=== PATIENT | male | born 1930 | race Caucasian/White ===

== ENCOUNTER 2017-10-25 12:53 | Emergency (ER) | payer MEDICARE ==
[2017-10-25 13:48] LABS: BASOPHIL % 0.2 % (0.0-0.4); Basophil (Absolute #) 0.02 (0-0.4); Eosinophil % 2.6 % (0.00-5.0); Eosinophil (Absolute #) 0.26 (0-0.5); Granulocyte Absolute (ANC) 7.48 (1.4-6.9); Granulocytes % 74.5 % (36.0-66.0); Hematocrit 43.1 % (42-50); Hemoglobin 14.5 gm/dl (12.5-18.0); Lymphocyte (Absolute #) 1.21 (1.0-4.6); Lymphocytes % 12.1 % (24.0-44.0); Mean Cell Volume 94.9 fl (78-100); Mean Corpuscular Hemoglobin 31.9 pg (26-32); Mean Corpuscular Hgb Concent. 33.6 g/dl (32-36); Mean Platelet Volume 9.4 fl (6-9.5); Monocyte (Absolute #) 1.06 (0.0-1.3); Monocytes % 10.6 % (0.0-12.0); Platelet Count 191 K/mm3 (150-450); Red Blood Count 4.54 M/mm3 (4.1-5.6)
--- NOTE | 2017-10-25 13:50 | ERPHSYRPT ---
- History of Present Illness Time Seen by Provider: 10/25/17 13:03 Source: patient, family (), other (Dr Johnston) Patient Subjective Stated Complaint: states has been having mid back pain and constipation for three weeks. Triage Nursing Assessment: to room per w/c, skin warm to touch/pale/dry. tender in mid back. has f/c from home in place. catheter replaced per dr. cano one week ago. hx prostate cancer. catheter not changed in er due to difficulty with placement in the past per dr. johnston. catheter clamped and fresh specimen obtained for lab. abd large/distended, soft, tender to palpation. Physician History: CC: back pain Hx: 86 y/o patient of Dr Johnston with hx of prostate cancer. He has 12 days of low back pain. Some abd pain. Constipation alternates with diarrhea. Wears a willson cath. He was seen in [place] [facility] and took two doses of amoxil which caused diarrhea. No fever or chills. Saw his chiropracter this AM who adjusted him and told him it is not his spine. He is tired. having diff caring for him at home. Timing/Duration: day(s) Allergies/Adverse Reactions: ciprofloxacin [From Cipro] Allergy (Severe, Verified 10/25/17 14:26) levofloxacin [From Levaquin] Allergy (Severe, Verified 10/25/17 14:26) isosorbide Allergy (Unknown, Verified 06/21/17 14:32) levalbuterol HCl [From Xopenex] Allergy (Unknown, Verified 06/21/17 14:32) Sulfa (Sulfonamide Antibiotics) Allergy (Unknown, Verified 06/21/17 14:32) Home Medications: Acetaminophen [Tylenol] 1 tablet PO Q4-6HPRN PRN 12/17/14 [History] Alprazolam [Xanax 0.25 mg] 1 tablet PO BID 12/17/14 [History] Amlodipine Besylate 10 mg [Norvasc 10 MG] 1 tablet PO DAILY 12/17/14 [History] Cyclosporine [Restasis] 1 drop IRRIGATION BID 12/17/14 [History] Gabapentin [Neurontin] 100 mg PO HS 12/17/14 [History] Guaifenesin [Mucinex] 1 tablet PO BID 12/17/14 [History] Hypromellose [Systane Gel] 1 drops IRRIGATION DAILY 12/17/14 [History] Ipratropium/Albuterol Sulfate [Combivent Inhaler] 1 inhaler IH BID 12/17/14 [ History] Latanoprost [Xalatan] 1 drop .ROUTE HS 12/17/14 [History] PANTOPRAZOLE 40 mg Tablet [Protonix 40MG Tablet] 1 tablet PO DAILY [History] Polyethylene Glycol 3350 [Miralax] 30 cap.ec PO DAILY 12/17/14 [History] Saccharomyces Boulardii [Florastor] 1 tablet PO DAILY 12/17/14 [History] Simethicone [Gas-X] 80 mg PO Q4HPRN PRN 12/17/14 [History] Albuterol Sulfate 2.5 mg IH BID 06/21/17 [History] Azelastine HCl [Astepro] 205.5 mcg NS DAILY 06/21/17 [History] Brinzolamide/Brimonidine Tart [Simbrinza 1%-0.2% Eye Drops] 1 ml OP BID [History] Bumetanide 0.5 mg PO DAILY 06/21/17 [History] Esomeprazole Magnesium [Nexium] 40 mg PO DAILY 06/21/17 [History] Ipratropium [place] 0.5 mg [Atrovent 0.5MG NEBULE] 0.5 mg IH DAILY 06/21/17 [History] Methylprednisolone 4 mg PO DAILY 06/21/17 [History] Nebivolol HCl [Bystolic] 2.5 mg PO DAILY 06/21/17 [History] Hx Tetanus, Diphtheria Vaccination/Date Given: Yes Hx Influenza Vaccination/Date Given: Yes Hx Pneumococcal Vaccination/Date Given: Yes Immunizations Up to Date: No - Review of Systems Constitutional: Fatigue, Malaise, Weakness, No Fever, No Chills Eyes: No Symptoms Ears, Nose, & Throat: No Symptoms, No Painful Swallowing Respiratory: No Cough Cardiac: No Chest Pain Abdominal/Gastrointestinal: Abdominal Pain, Diarrhea, Constipation, No Vomiting Genitourinary Symptoms: Other (wears catheter) Musculoskeletal: Back Pain Skin: No Rash Neurological: No Headache All Other Systems: Reviewed and Negative - Past Medical History Pertinent Past Medical History: Yes Neurological History: Migraines ENT History: Cataracts, Glaucoma, Macular Degeneration Cardiac History: Hypertension Respiratory History: COPD Endocrine Medical History: No Pertinent History Musculoskeletal History: Arthritis GI Medical History: GERD History: No Pertinent History Psycho-Social History: Anxiety Male Reproductive Disorders: Prostate Cancer Other Medical History: prostate cancer had the radiation seeds has an indwelling urinary cath,bladder spasms - Past Surgical History Past Surgical History: Yes Neuro Surgical History: No Pertinent History Cardiac: Cardiac Catheterization Respiratory: No Pertinent History Gastrointestinal: No Pertinent History Genitourinary: No Pertinent History Musculoskeletal: No Pertinent History Male Surgical History: Prostate Surgery - Social History Smoking Status: Never smoker Exposure to second hand smoke: No Drug Use: none Patient Lives Alone: No - Nursing Vital Signs Nursing Vital Signs: Initial Vital Signs Temperature 97.7 F 10/25/17 13:02 Pulse Rate 80 10/25/17 13:02 Respiratory Rate 18 10/25/17 13:02 Blood Pressure 152/77 10/25/17 13:02 O2 Sat by Pulse Oximetry 95 10/25/17 13:02 Pain Scale Pain Intensity [Back] 10 Pain Intensity 4 - Physical Exam General Appearance: alert, other (frail elderly man with limited mobililty) Eye Exam: PERRL/EOMI Ears, Nose, Throat Exam: dry mucous membranes Neck Exam: normal inspection Respiratory Exam: diminished breath sounds Cardiovascular Exam: regular rate/rhythm Gastrointestinal/Abdomen Exam: soft, No tenderness, No distention, No mass, No guarding Male Genitalia Exam: normal genitalia Back Exam: normal inspection, No vertebral tenderness Extremity Exam: pedal edema Neurologic Exam: alert, cooperative, No motor deficits Skin Exam: warm, dry, No rash SpO2 Interpretation: normal SpO2: 95 Oxygen Delivery: Room Air - Course Nursing assessment & vital signs reviewed: Yes EKG Interpreted by Me: RATE (76), Sinus Rhythm, NORMAL AXIS, NORMAL INTERVALS ( QTc 416), NORMAL QRS, NORMAL ST-T - CT Exams abd/pelvis CT Interpretation: Tele-radiologist Report (New T11 fracture) Ordered Tests: Active Orders 24 hr Category Date Time Status Catheter-Matthews Willson STAT Care 10/25/17 13:14 Active EKG-ER Only STAT Care 10/25/17 13:14 Active IV Insertion STAT Care 10/25/17 13:14 Active ABDOMEN AND PELVIS W/0 CONTRAS [CT] Routine Exams 10/25/17 14:07 Completed CHEST 1 VIEW (PORTABLE) Stat Exams 10/25/17 13:14 Completed BLOOD CULTURE Stat Lab 10/25/17 15:51 Ordered CBC W DIFF Stat Lab 10/25/17 13:25 Completed CMP Stat Lab 10/25/17 13:25 Completed CULTURE,URINE Stat Lab 10/25/17 14:00 Received Lactic Acid Stat Lab 10/25/17 15:50 Ordered UA W/ MICROSCOPIC Stat Lab 10/25/17 14:00 Completed Medication Summary Generic Name Dose Route Start Last Admin Trade Name Freq PRN Reason Stop Dose Admin Ceftriaxone Sodium/Dextrose 1 g in 50 mls @ 100 mls/hr 10/25/17 15:51 16:02 Rocephin 1 Gm-D5w 50 Ml Bag IV 10/25/17 16:20 100 mls/hr STAT STA Administration Discontinued Medications Generic Name Dose Route Start Last Admin Trade Name Freq PRN Reason Stop Dose Admin Ceftriaxone Sodium/Dextrose Confirm 10/25/17 15:57 Rocephin 1 Gm-D5w 50 Ml Bag Administered 10/25/17 15:58 Dose 1 g in 50 mls @ ud IV .STK-MED ONE Lab/Rad Data: Laboratory Result Diagrams 10/25/17 13:25 10/25/17 13:25 Laboratory Results 10/25/17 10/25/17 10/25/17 Range/Units 14:00 13:25 13:25 WBC 10.0 (4.0-10.5) K/mm3 RBC 4.54 (4.1-5.6) M/mm3 Hgb 14.5 (12.5-18.0) gm/dl Hct 43.1 (42-50) % MCV 94.9 (78-100) fl MCH 31.9 (26-32) pg MCHC 33.6 (32-36) g/dl RDW 13.0 (11.5-14.0) % Plt Count 191 (150-450) K/mm3 MPV 9.4 (6-9.5) fl Gran % 74.5 H (36.0-66.0) % Lymphocytes % 12.1 L (24.0-44.0) % Monocytes % 10.6 (0.0-12.0) % Eosinophils % 2.6 (0.00-5.0) % Basophils % 0.2 (0.0-0.4) % Basophils # 0.02 (0-0.4) Sodium 136 L (137-145) mmol/L Potassium 4.0 (3.5-5.1) mmol/L Chloride 96 L (98-107) mmol/L Carbon Dioxide 29 (22-30) mmol/L Anion Gap 14.7 (5-15) MEQ/L BUN 18 (9-20) mg/dL Creatinine 0.97 (0.66-1.25) mg/dL Estimated GFR > 60 ML/MIN Glucose 104 (74-106) mg/dL Calcium 9.5 (8.4-10.2) mg/dL Total Bilirubin 0.50 (0.2-1.3) mg/dL AST 23 (17-59) U/L ALT 24 (0-50) U/L Alkaline Phosphatase 95 (38-126) U/L Serum Total Protein 7.2 (6.3-8.2) g/dL Albumin 4.1 (3.5-5.0) g/dL Ur Collection Type VOID Urine Color YELLOW (YELLOW) Urine Appearance CLEAR (CLEAR) Urine pH 6.0 (5-6) Ur Specific [place] 1.010 (1.005-1.025) Urine Protein 1+ (Negative) Urine Ketones NEGATIVE (NEGATIVE) Urine Blood 250 (0-5) Daniel/ul Urine Nitrite POSITIVE (NEGATIVE) Urine Bilirubin NEGATIVE (NEGATIVE) Urine Urobilinogen NORMAL (0-1) mg/dL Ur Leukocyte Esterase 2+ (NEGATIVE) Urine Microscopic RBC 5-10 (0-2) /HPF Urine Microscopic WBC 50-100 (0-5) /HPF Ur Epithelial Cells FEW (FEW) /HPF Urine Bacteria MODERATE (NEGATIVE) /HPF Urine Mucus SLIGHT (NEGATIVE) /HPF Urine Culture Reflexed YES (NO) Urine Glucose NEGATIVE (NEGATIVE) mg/dL Specimen Received 10/25/17 1400 - Progress Progress Note: 10/25/17 16:21 He has no specific trauma but has a new T11 fx. He has UTI despite prior abtx. Called Dr Chris Rhodes who advised transfer to [facility] in case of need for ortho. Spoke to [facility] transfer center and Dr Harlan Nicholas accepts transfer. Counseled pt/family regarding: lab results, diagnosis, need for follow-up, rad results - Departure Time of Disposition: 16:23 Departure Disposition: Transfer Clinical Impression: UTI (urinary tract infection), Prostate cancer, Wedge compression fracture of T11 vertebra Condition: Stable Critical Care Time: No Referrals: JAIME JOHNSTON MD [Primary Care Provider] -
[2017-10-25 14:05] LABS: Appearance CLEAR (CLEAR); Bilirubin NEGATIVE (NEGATIVE); Blood 250 Ery/ul (0-5); Glucose NEGATIVE (NEGATIVE); Ketones NEGATIVE (NEGATIVE); Leukocyte Esterase 2+ (NEGATIVE); Nitrite POSITIVE (NEGATIVE); Protein,Urine Dip 1+ (Negative); Urobilinogen NORMAL mg/dL (0-1)
--- NOTE | 2017-10-25 14:07 | XRAY ---
Indication: Abdomen and back pain. History of prostate cancer. Comparison: January 14, 2011. Portable apical lordotic chest again hyperinflated with scattered calcified granulomas. No focal infiltrate, consolidation, or large effusion. Heart is not enlarged. Bony thorax intact again with mild osteopenia, degenerative changes, scoliosis, and old right 9th rib fracture. Impression: Stable nonacute chest with chronic features.
[2017-10-25 14:09] LABS: ALBUMIN 4.1 g/dL (3.5-5.0); ALKALINE PHOSPHATASE 95 U/L (38-126); ANION GAP 14.7 MEQ/L (5-15); BLOOD UREA NITROGEN 18 mg/dL (9-20); CHLORIDE 96 mmol/L (98-107); Calcium 9.5 mg/dL (8.4-10.2); Carbon Dioxide 29 mmol/L (22-30); Creatinine 1 0.97 mg/dL (0.66-1.25); Glucose 104 mg/dL (74-106); SGOT/AST 23 U/L (17-59); SGPT/ALT 24 U/L (0-50); SODIUM 136 mmol/L (137-145); Total Protein 7.2 g/dL (6.3-8.2)
[2017-10-25 14:10] LABS: Bacteria MODERATE /HPF (NEGATIVE); Epithelial Cells FEW /HPF (FEW); Mucus SLIGHT /HPF (NEGATIVE); WBC 50-100 /HPF (0-5)
--- NOTE | 2017-10-25 14:55 | XRAY ---
Indication: Abdominal and flank pain. History of prostate cancer. Multiple contiguous axial images obtained through the abdomen and pelvis without contrast as ordered. Comparison: January 14, 2011. Lung bases again hyperinflated with minimal bibasilar fibrosis/scarring and a few right base calcified granulomas. New 5 mm left lower lobe peripheral noncalcified micronodule. No infiltrate or effusion. Heart is not enlarged. Stable small hiatal hernia. Noncontrasted stomach and bowel loops appear nonobstructed. There is now mild/moderate diffuse scattered colonic fecal debris throughout. Again scattered colonic diverticulosis without diverticulitis. Normal appendix. Stable splenic calcified granulomas, prostate radiation seeds, and bilateral renal cysts again largest cyst on the right measuring 8 cm. New Cordero catheter in situ emptying the bladder. Remaining liver, gallbladder, pancreas, spleen, adrenal glands, kidneys, and ureters appear unremarkable for noncontrast exam. There remains mild aortoiliac calcifications without AAA. Osseous structures intact with progressive worsening moderate/advanced multilevel degenerative spondylosis. Stable levoscoliosis. New finding T11 compression fracture with approximately 50% height loss of unknown chronicity. No suspicious bony lesions. Stable small fatty umbilical hernia. New small supraumbilical fatty ventral hernia with minimal stranding. Impression: 1. New fecal stasis without obstruction. Stable colonic diverticulosis. 2. No acute intra-abdominal/pelvic abnormalities on this noncontrast exam. 3. New T11 compression fracture on unknown chronicity. 4. Stable bilateral cysts, small hiatal hernia, prostate radiation seeds, and evidence for old granulomatous disease. 5. Stable fatty umbilical hernia. New small supraumbilical fatty ventral hernia with stranding possibly infected. 6. New indeterminate left lower lobe noncalcified micronodule. CT DI 24.63
[2017-10-25] MEDS ORDERED: ROCEPHIN 1 Gm-D5w 50 ml Bag** 1 G/50 ML IVPB IV STA (15:51)
[2017-10-25] MEDS ORDERED: ROCEPHIN 1 Gm-D5w 50 ml Bag** 1 G/50 ML IVPB IV ONE (15:57)
[2017-10-25 16:24] VITALS: O2SAT 95
[2017-10-25 17:00] VITALS: BP 156/82; PULSE 85
[2017-10-25] MEDS ORDERED: xanAX 0.5 MG PO ONE (17:22)
[2017-10-25] MEDS ORDERED: xanAX 0.5 MG ONE (17:23)
== END 2017-10-25 17:46 | disposition short-term general hospital (02) ==
LOC: ED 12:53
DX: N39.0 Urinary tract infection, site not specified (principal); M54.5 Low back pain; R10.9 Unspecified abdominal pain; Z79.899 Other long term (current) drug therapy; C80.1 Malignant (primary) neoplasm, unspecified; M48.54XA Collapsed vertebra, not elsewhere classified, thoracic region, initial encounter for fracture
CPT/HCPCS: 36000; 36415; 51702; 71045; 74176; 80053; 81000; 83605; 85025; 87040; 87077; 87086; 87186; 93005; 96365; 99285; J0696; A9270-GY